=== PATIENT | male | born 1945 | race Caucasian/White ===

== ENCOUNTER → 2019-08-23 | Outpatient (CLI) | payer MEDICARE, MEDICAID ==
[~2019-08-23] MED LIST: CLOP75TA41 PO; CYCL1TAB18 PO; DOCU250C3 PO; HYDR-3547; LISI-646 PO; LORA-205; MORP1CAP32; SACC250C PO; TERA10CA36 PO
== END | disposition home or self-care (01) ==
LOC: Rad HDHVI 11:00
PROVIDERS: ATTEND Internal Medicine Cardiovascular Disease
DX: I07.1 Rheumatic tricuspid insufficiency (principal); I70.203 Unspecified atherosclerosis of native arteries of extremities, bilateral legs; R00.2 Palpitations
CPT/HCPCS: 93306; 93926